=== PATIENT | female | born 1955 | race Two or more races ===

== ENCOUNTER 2024-07-15 11:26 | Emergency (ER) | payer MEDICAID, SELFPAY ==
[2024-07-15 11:28] VITALS: BMI 28.5
[2024-07-15 11:35] VITALS: BP 168/81; PULSE 76; RESP 16; TEMP 36.4; O2SAT 97
--- NOTE | 2024-07-15 11:47 | XR_ITS ---
Examination: Cervical spine 3 views Technique one AP lateral coned AP odontoid cervical spine 3 views Date and time: July 15, 2024 1306 hours INDICATIONS: Patient fell today with injury of the neck, neck pain. FINDINGS: Adequate alignment cervical vertebral bodies. No cervical fracture. Intact odontoid. Moderate degenerative disc disease C5-C6, C6-C7 IMPRESSION: Moderate degenerative disc disease C5-C6, C6-C7
--- NOTE | 2024-07-15 11:47 | XR_ITS ---
Examination: Lumbar spine 3 views Technique one AP lateral coned lateral lower lumbar spine 3 views Date and time: July 15, 2024 1301 hours INDICATIONS: Patient fell today with injury to the lower back, lower back pain. FINDINGS: No acute lumbar fracture Grade 1 anterolisthesis L5 on S1 Mild to moderate degenerative disc disease L5-S1 IMPRESSION: No lumbar fracture
--- NOTE | 2024-07-15 11:47 | XR_ITS ---
Examination: CT brain head without contrast. 2-D sagittal coronal reconstructions Date and time of exam:July 15, 2024 1245 hours Comparison June 01, 2006 INDICATIONS: Syncopal episode today, patient fell this morning with injury to the head, head pain CTDI: vol (mGy):44.6 DLP: (mGycm):918 Technique: Multiple CT axial sections of the brain have been obtained, 5 mm slice thickness. Contrast has not been administered. 2-D sagittal, coronal reconstructions have been obtained Low dose protocols were performed. One or more of the following dose reduction techniques were used; automated exposure control, adjustment of the mA and/or KV according to patient size, use of iterative reconstruction technique. Findings: No significant ventricular enlargement. Intra-axial or extra-axial hemorrhage density is not seen. No mass effect or midline shift Basal cisterns are not remarkable. Fourth ventricle is midline. Cranial vault intact. Impression: Negative for acute hemorrhage, mass effect or midline shift
--- NOTE | 2024-07-15 11:47 | XR_ITS ---
Examination: Thoracic spine 3 views TECHNIQUE: AP lateral coned lateral upper dorsal spine 3 views Date and time: July 15, 2024 1319 hours INDICATIONS: Patient fell today with injury to the mid back, mid back pain. FINDINGS: Adequate alignment thoracic vertebral bodies No thoracic fracture Mild diffuse thoracic disc narrowing IMPRESSION: No acute thoracic fracture
--- NOTE | 2024-07-15 11:48 | EDNOTE_ITS ---
<Statement entered by Cony Diallo MD - 07/26/24 01:04> As co-signing physician, I was present and available for consult prn. I concur with the plan and care as documented by the midlevel provider. ED Head Injury RME/HPI General Chief complaint: Head Injury Stated complaint: UPPER BACK AND HEAD PAIN S/P FALL AT 3AM, DENIES L Time Seen by Provider: 07/15/24 11:31 Arrival date/time: 07/15/24 11:26 RME / HPI RME / HPI Narrative: 68-year-old female patient came in for evaluation regarding fall. Patient was sleeping, patient fell off the bed according to her about 2 feet high, landed on the hard floor. Patient is complaining of headache, neck pain, upper back pain and lumbar pain described as dull ache, severity mild. Patient denies any nausea or vomiting incident happened about 3 AM this morning. Patient is ambulatory patient is not taking any blood thinner. Related Data Home Medications ?Medication ?Instructions ?Recorded ?Confirmed glipizide 10 mg tablet 10 mg PO QDAY 09/11/1709/11 losartan 25 mg tablet 25 mg PO QDAY 09/11/1709/11 metformin 500 mg tablet,extended 500 mg PO QDAY 09/11/17 release 24 hr omega 6-xsh-xoc-fish oil 1,000 mg 1,000 mg PO QDAY 09/11/17 (120 mg-180 mg) capsule (Fish Oil) ranitidine HCl 150 mg capsule 150 mg PO QPM 09/11/17 0 09/11/17 Allergies Allergy/AdvReac Type Severity Reaction Status Date / Time morphine Allergy Unknown sob Verified 07/15/24 11:30 Review of Systems Review of Systems Narrative Review of Systems: Review of system reviewed and within normal limits except mentioned in HPI ED Exam Narrative Physical exam: VITAL SIGNS: Reviewed. GENERAL APPEARANCE: Alert and interactive, follows commands, no acute distress, HEAD AND FACE: Occipital tenderness, no swelling no hematoma ENT: PERRL, pink conjunctivitis, eyelid no trauma, Mucous membrane moist. NECK: Supple, posterior neck tenderness, no nuchal rigidity. CHEST: No tenderness, no crepitus, no paradoxical movement, no retractions. LUNGS: Clear, well ventilated, symmetric, no rales, no wheezing, no ronchi, no stridor, good breath sounds bilaterally. HEART: Regular rate, regular rhythm, no murmur, no gallops. ABDOMEN: Soft, positive bowel sounds, nondistended, no guarding, nontender, no rebound, no masses, RECTAL: Deferred. GENITAL: Deferred. NEUROLOGICAL: Gross motor function intact sensory function intact, Appropriate for age. MUSCULOSKELETAL: low back low back tenderness, full range of motion. EXTREMITIES: Nontender, full range of motion. SKIN: Color pink, dry, no rash, no lacerations, no abrasions, no contusions. LYMPHATICS: Deferred. Course Quality Measures none Orders Category Date Time Status CT head/brain wo con Stat Exams 07/15/24 11:47 Completed XR cervical spine 2-3V Stat Exams 07/15/24 11:47 Completed XR lumbar spine 2-3V Stat Exams 07/15/24 11:47 Completed XR thoracic spine 2V Stat Exams 07/15/24 11:47 Completed Vital Signs Vital signs: Vital Signs Temperature 97.5 F 07/15/24 11:35 Pulse Rate 76 07/15/24 11:35 Respiratory Rate 16 07/15/24 11:35 Blood Pressure 168/81 H 07/15/24 11:35 Pulse Oximetry (%) 97 07/15/24 11:35 Oxygen Delivery Method Room Air 07/15/24 11:35 Head Injury MDM Narrative MDM Narrative:: 68-year-old female patient came in for evaluation regarding fall. Patient was sleeping, patient fell off the bed according to her about 2 feet high, landed on the hard floor. Patient is complaining of headache, neck pain, upper back pain and lumbar pain described as dull ache, severity mild. Patient denies any nausea or vomiting incident happened about 3 AM this morning. Patient is ambulatory patient is not taking any blood thinner. Patient CT scan of the head came back unremarkable. X-ray of the cervical spine thoracic spine and lumbar spine all came back normal results discussed with the patient and family. Patient appears nontoxic and hemodynamically stable .Decision to discharge the patient. The patient/family was given an opportunity to ask questions and understood their discharge instructions. Discharge instructions specifically included follow up provider and time frame, current and/or new medications and possible side effects, indications for sooner follow up or return to the emergency department, and the expected course of current diagnosis. Patient reports feeling better as well and giving evidence of significant clinical improvement, I believe patient is now a candidate for discharge. Patient data External records reviewed:: None Clinical information provided by:: patient and family Social determinants that could affect healthcare access:: none Patient has the following chronic illnesses:: Arthritis hypertension diabetes mellitus How is presenting disease/condition affected by chronic disease/condition?: exacerbated by Evaluation data The following diagnostics were reviewed and interpreted by me:: radiology exam(s) Lab and/or radiology exams considered but not ordered:: None Interpretation Summary: See results in MDM Medications / Prescriptions Medications or Prescriptions considered but not ordered:: None Medication administrations:: None Consultations Consultation(s) initiated? (list below): No Diagnosis Differential diagnosis head injury: other (Neck pain, back pain, status post fall) Most likely diagnosis given after review of the tests above:: Neck pain, back pain, fall Admission Indicated Admission indicated?: not indicated Admission Request Was there a request for admission?: No Disposition Plan Disposition Plan: Discharge Discharge Attestation Discharge Attestation: The patient and all family members were given an opportunity to ask questions and understood the discharge instructions. Discharge instructions specifically effects, indications for sooner follow up or return to the emergency department, and the expected course of current diagnosis. Patient condition: Stable Discharge Plan Plan Patient Disposition: HOME (Self Care) Discharge Disposition comment: Stable Prescriptions/Referrals Prescriptions/Med Rec: No Action glipizide 10 mg Tablet 10 mg PO QDAY losartan 25 mg Tablet 25 mg PO QDAY metformin 500 mg Tablet Extended Release 24 Hr 500 mg PO QDAY omega 3-tmj-ymz-fish oil [Fish Oil] 1,000 mg (120 mg-180 mg) Capsule 1,000 mg PO QDAY ranitidine HCl 150 mg Capsule 150 mg PO QPM Referrals: Tere Hensley MD [Primary Care Provider] - In 1 week Problem List Clinical Impression: Neck pain, Back pain, Fall Patient/Caregiver Discharge Instructions Discharge Activity: activity as tolerated Education Materials: Back Safety Bed Additional Instructions: Thank you for the opportunity for serving you today. You are stable for discharged . You are advised to: Follow-up with your PCP in 1 to 2 days Return to ED for worsening of symptoms Increase oral fluids Take [id number] Tylenol as needed for pain Print Language: Nepalese Stand Alone Forms: [employer] Award Info., Patient Portal Info Letter PA/MAPPING SUPERVISOR Supervising Physician AREN/MAPPING SUPERVISOR Supervising Physician: MD Gloria
== END 2024-07-15 15:22 | disposition home or self-care (01) ==
PROVIDERS: Emergency Provider Emergency Medicine; PCP Obstetrics & Gynecology
DX: S09.90XA Unspecified injury of head, initial encounter (principal); S19.9XXA Unspecified injury of neck, initial encounter; S39.92XA Unspecified injury of lower back, initial encounter; S29.9XXA Unspecified injury of thorax, initial encounter; W06.XXXA Fall from bed, initial encounter
CPT/HCPCS: 70450; 72040; 72070; 72100; 99283

== ENCOUNTER 2024-11-07 16:59 | Emergency (ER) | payer MEDICAID, SELFPAY ==
[2024-11-07 16:59] VITALS: BMI 27.3
[2024-11-07 17:13] VITALS: BP 193/64; PULSE 76; RESP 18; TEMP 36.5; O2SAT 100
--- NOTE | 2024-11-07 17:18 | XR_ITS ---
Examination: PA chest single view Technique: Upright PA chest single view Date and time: November 07, 2024, 1800 hrs. Indications: Fever today. Findings: Normal heart size Mild vascular congestion. No lobar pneumonia. No pulmonary edema Impression: No lobar pneumonia
--- NOTE | 2024-11-07 17:18 | XR_ITS ---
Examination: CT abdomen and pelvis without contrast. Coronal 3-D reconstructions. Sagittal 2-D reconstructions. Date and time of exam:November 07, 2024 1810 hrs. Indications: Generalized abdominal pain beginning 2 days ago CTDI: vol (mGy): 6.94 DLP: (mGycm): 330 Technique: Axial images of the abdomen have been obtained, 3 mm slice thickness Intravenous contrast material has not been administered. Low dose protocols were performed. One or more of the following dose reduction techniques were used; automated exposure control, adjustment of the mA and/or KV according to patient size, use of iterative reconstruction technique. Findings: No focal liver or splenic lesions No gallstones No pancreatic or adrenal mass. No renal or ureteral calculi, no hydronephrosis Aorta normal size Normal appendix Colonic diverticulosis, no diverticulitis Urinary bladder intact Absent uterus No pelvic mass Grade 1 anterolisthesis L5 on S1 Impression: No renal or ureteral calculi, no hydronephrosis Negative for pancreatitis Normal appendix Colonic diverticulosis, no diverticulitis
[2024-11-07 17:54] LABS: Basophils # (Auto) 0.0 Thou/mm3 (0.0-0.2); Basophils % (Auto) 0 % (0-2.5); Eosinophils # (Auto) 0.2 Thou/mm3 (0.0-0.5); Eosinophils % (Auto) 4 % (0-10); Hematocrit 38.4 % (36.0-46.0); Hemoglobin 12.9 g/dL (12.0-16.0); Immature Granulocytes Auto 0.02 Thou/mm3 (0.00-0.00); Lymphocytes # (Auto) 2.1 Thou/mm3 (1.0-4.8); Lymphocytes % (Auto) 40 % (10-50); Mean Corpuscular HGB Conc 33.6 g/dl (31.0-37.0); Mean Corpuscular Hemoglobin 28.9 pg (25.0-35.0); Mean Corpuscular Volume 86 fL (80-100); Monocytes # (Auto) 0.3 Thou/mm3 (0.0-0.8); Monocytes % (Auto) 6 % (0-12); Neutrophils # (Auto) 2.6 Thou/mm3 (1.8-7.7); Neutrophils % (Auto) 49 % (37-80); Nucleated Red Blood Cell # 0.00 Thou/mm3 (0.00-0.00); Nucleated Red Blood Cell % 0 /100 WBC (0); Platelet Count 148 Thou/mm3 (140-440); RDW Standard Deviation 39.5 fL (36.4-46.3); Red Blood Count 4.46 Miln/mm3 (4.00-5.20); White Blood Count 5.2 Thou/mm3 (3.6-11.0)
[2024-11-07 18:14] LABS: Alanine Aminotransferase 18 U/L (10-49); Albumin, Serum 4.7 gm/dL (3.4-4.8); Albumin/Globulin Ratio 1.7 (1.2-2.2); Alkaline Phosphatase 123 U/L (46-116); Amylase 103 U/L (30-118); Anion Gap 10 (7-16); Aspartate Amino Transferase 19 U/L (0-34); BUN/Creatinine Ratio 16 Ratio (12-20); Bilirubin,Total 0.5 mg/dL (0.3-1.2); Blood Urea Nitrogen 13 mg/dL (9-23); Calcium 10.1 mg/dL (8.3-10.6); Calcium (Corrected) 10.1 mg/dL (8.5-10.1); Carbon Dioxide 23.9 mMol/L (20.0-31.0); Chloride 109 mMol/L (98-107); Creatinine (Component) 0.8 mg/dL (0.6-1.3); Estimated Creatinine Clearance 54.4 mL/min (>60); Globulin 2.8 gm/dL (2.3-3.5); Glucose 139 mg/dL (74-106); Osmolality,Calculated 287 (275-295); Potassium 3.4 mMol/L (3.4-5.1); Sodium 143 mMol/L (136-145); Total Protein 7.5 gm/dL (5.7-8.2); eGFR > 60 See Note
[2024-11-07 18:19] LABS: Collection Type, Urine Clean Catch
[2024-11-07 18:25] LABS: Bilirubin,Urine Negative (Negative); Blood,Urine Negative (Negative); Clarity,Urine Clear (Clear/Hazy); Color,Urine Colorless (Lt Yel-Yel); Glucose, Urine Negative (Negative); Ketones,Urine Negative (Negative); Leukocyte Esterase,Urine Positive (Negative); Nitrite,Urine Negative (Negative); PH,Urine 7.0 (5.0-7.0); Protein,Urine Negative (Neg - Trace); RBC,Urine < 1 /hpf (0-3); Specific Gravity,Urine 1.006 (1.001-1.035); Squamous Epithelial Cell,Urine 2 /hpf (0-5); Urobilinogen,Urine Negative mg/dL (0.0-1.0); WBC,Urine 3 /hpf (0-5)
[2024-11-07] MEDS: ALBUTEROL/IPRATROPIUM (Duoneb) RT SOL 3 ML NEBU INH (18:48)
[2024-11-07 18:51] VITALS: PULSE 70; RESP 18; O2SAT 100
--- NOTE | 2024-11-07 19:16 | PD.EDSOB ---
ED SOB =RME/HPI General Chief Complaint: Shortness of Breath/Dyspnea Stated Complaint: SOB, CHEST PAIN X5D Time Seen by Provider: 11/07/24 17:09 Arrival date/time: 11/07/24 16:59 This is a case of 68-year-old female who has a history of hypertension and diabetes came in in the emergency room due to shortness of breath on and off for 5 days associated with chest pain no palpitation daughter states that the patient have history of COVID and recurrent bronchitis worsening of the symptoms now with abdominal pain denies any nausea vomiting constipation diarrhea or blood in stool thus patient decided to start consult in the emergency room Limitations: no limitations Related Data Home Medications ?Medication ?Instructions ?Recorded ?Confirmed glipizide 10 mg tablet 10 mg PO QDAY 09/11/17 09/11/17 losartan 25 mg tablet 25 mg PO QDAY 09/11/17 09/11/17 metformin 500 mg tablet,extended 500 mg PO QDAY 09/11/17 09/11/17 release 24 hr omega 9-gvj-iui-fish oil 1,000 mg 1,000 mg PO QDAY 09/11/17 09/11/17 (120 mg-180 mg) capsule (Fish Oil) ranitidine HCl 150 mg capsule 150 mg PO QPM 09/11/17 09/11/17 Previous Rx's ?Medication ?Instructions ?Recorded albuterol sulfate 90 mcg/actuation 2 puff inhalation Q6H PRN 11/07/24 aerosol inhaler (Ventolin HFA) shortness of breath or wheezing #8.5 grams amoxicillin 875 mg-potassium 1 tab PO BID #20 tabs 11/07/24 clavulanate 125 mg tablet dicyclomine 20 mg tablet 20 mg PO TID #10 tabs 11/07/24 ondansetron 4 mg disintegrating 4 mg PO Q8H PRN nausea and 11/07/24 tablet vomiting #10 tabs prednisone 20 mg tablet 20 mg PO QDAY 3 days #3 tabs 11/07/24 Allergies Allergy/AdvReac Type Severity Reaction Status Date / Time morphine Allergy Unknown sob Verified 11/07/24 17:02 Review of Systems Review of Systems Systems Reviewed: All systems reviewed, normal except as documented Constitutional Constitutional: Reports system reviewed and no additional complaints, except as documented and Reports as per HPI Cardiovascular Cardiovascular: Reports system reviewed and no additional complaints, except as documented and Reports as per HPI Respiratory Respiratory: Reports system reviewed and no additional complaints, except as documented and Reports as per HPI Gastrointestinal Gastrointestinal: Reports system reviewed and no additional complaints, except as documented and Reports as per HPI Musculoskeletal Musculoskeletal: Reports system reviewed and no additional complaints, except as documented and Reports as per HPI Neurologic Neurologic: Reports system reviewed and no additional complaints, except as documented and Reports as per HPI Past Medical History Past Medical History NEUROLOGIC: Negative Seizures OTHER HISTORY: Negative Blood Transfusions, Blood Transfusion Reaction or Anesthesia Reactions Social History SMOKING STATUS: Never smoker ED Exam General Limitations: Present no limitations General appearance: Present alert, in no apparent distress and other (Patient is awake alert oriented not in distress nontoxic looking well-hydrated well-nourished) Head Head exam: Present atraumatic, normocephalic and normal inspection Eye Eye exam: Present normal appearance, PERRL and EOMI ENT ENT exam: Present normal exam, normal oropharynx, mucous membranes moist and other Neck Neck exam: Present normal inspection, full ROM, trachea midline and other (Negative for meningeal sign); Absent tenderness, meningismus or lymphadenopathy Chest Chest inspection: Present normal inspection and symmetric chest wall rise; Absent tenderness Respiratory Respiratory exam: Present normal lung sounds bilaterally and wheezes (Wheezing right lower lung field mild no crackles no rales no retraction); Absent respiratory distress, stridor, accessory muscle use or prolonged expiratory phase Cardiovascular Cardiovascular exam: Present regular rate, normal rhythm, normal heart sounds and other (No edema); Absent bradycardia, tachycardia, irregular rhythm, systolic murmur or diastolic murmur Abdominal Exam Abdominal exam: Present soft, normal bowel sounds and other (No CVA tenderness); Absent distention, tenderness, guarding, rebound, rigidity, diminished bowel sounds, hyperactive bowel sounds, hypoactive bowel sounds, organomegaly, trauma, psoas sign, obturator sign, heel tap sign, Kim's sign, Rovsing's sign or tenderness at McBurney's Point Extremities Exam Extremities exam: Present normal inspection and full ROM Back Exam Back exam: Present normal inspection and full ROM Neurological Exam Neurological exam: Present alert, oriented X3, CN II-XII intact, normal gait and reflexes normal; Absent motor sensory deficit Psychiatric Psychiatric exam: Present normal affect and normal mood Skin Skin exam: Present warm, dry, intact and normal color Course Quality Measures none Orders Category Date Time Status Bedside COVID-19 Antigen Test NOW Care 11/07/24 17:23 Active Bedside Influenza A&B Antigen Test NOW Care 11/07/24 17:[address] abdomen pelvis wo con Stat Exams 11/07/24 17:18 Completed XR chest 1V portable Stat Exams 11/07/24 17:18 Completed Amylase Stat Lab 11/07/24 17:37 Completed CBC Stat Lab 11/07/24 17:37 Completed Comprehensive Metabolic Panel Stat Lab 11/07/24 17:37 Completed Troponin I Stat Lab 11/07/24 19:26 Ordered Urinalysis Stat Lab 11/07/24 17:36 Completed Albuterol/Ipratr Rt Jerrica [Duoneb Rt Jerrica] Med 11/07/24 17:25 Discontinued 3 ml INH X1 ONE Vital Signs Vital signs: Vital Signs Temperature 97.7 F 11/07/24 17:13 Pulse Rate 76 11/07/24 17:13 Respiratory Rate 18 11/07/24 17:13 Blood Pressure 193/64 H 11/07/24 17:13 Pulse Oximetry (%) 100 11/07/24 17:13 Oxygen Delivery Method Room Air 11/07/24 17:13 Patient blood pressure was 93/64 after giving breathing treatment patient condition markedly improved and resolved BP was rechecked and noted to be 135/40 afebrile not tachycardic not tachypneic oxygen saturation is 100% on room air Shortness of Breath / Dyspnea MDM Narrative MDM Narrative:: This is a case of 68-year-old female who has a history of hypertension and diabetes came in in the emergency room due to shortness of breath on and off for 5 days associated with chest pain no palpitation daughter states that the patient have history of COVID and recurrent bronchitis worsening of the symptoms now with abdominal pain denies any nausea vomiting constipation diarrhea or blood in stool thus patient decided to start consult in the emergency room physical examination patient is awake alert oriented not in distress nontoxic looking well-hydrated well-nourished negative for meningeal sign vital signs stable BP stable nontachycardic nontachypneic nonhypoxic and afebrile abdominal exam noted no tenderness no guarding no rebound no rigidity negative psoas negative straight and negative Rovsing's negative Bluebell's # negative CVA tenderness lung sounds noted wheezing right lower lung field no crackles no rales no retraction no stridor heart normal rate regular rhythm no murmur no edema blood test showed no leukocytosis no anemia kidney and liver function is normal no electrolyte imbalance urinalysis is normal EKG is normal troponin is negative patient CT scan of the abdomen pelvis were unremarkable only diverticulosis patient chest x-ray is normal no pneumonia after giving breathing treatment patient condition markedly improved she was prescribed with Augmentin for diverticulosis and bronchitis and she will finish the course of antibiotic she was also given Ventolin inhaler and prednisone for 3 days and dicyclomine for abdominal pain and Zofran for nausea vomiting patient is notified for any worsening symptoms or any emergent concerns she will return to the emergency room immediately or call 911 Patient was discharged with comfortable condition walking with stable gait. Patient verbalized no further complains explained diagnosis and answered patient question. Patient is comfortable with the proposed management plan including the need to follow up with his/her primary care physician and any specialist if applicable Discussed patient for any urgent condition or worsening sx, He/She needed to go to emergency room immediately or call 911. Patient acknowledge the responsibility to follow up as instructed and to monitor her/his symptoms. For any persistence of the symptoms for more than 3-5 days return precaution advised. Discussed the result of the test and was given printed discharge instruction Patient data External records reviewed:: [facility] previous records Clinical information provided by:: patient Social determinants that could affect healthcare access:: none Patient has the following chronic illnesses:: None How is presenting disease/condition affected by chronic disease/condition?: no chronic disease Evaluation data The following diagnostics were reviewed and interpreted by me:: lab results, radiology exam(s) and EKG tracing(s) Lab and/or radiology exams considered but not ordered:: Reviewed Interpretation Summary: Reviewed Medications / Prescriptions Medications or Prescriptions considered but not ordered:: Given Medication administrations:: Medication Administration History Discontinued Medications Albuterol/Ipratropium (Albuterol/Ipratropium (Duoneb) Rt Jerrica 3 Ml Nebu) 3 ml INH X1 ONE Stop: 11/07/24 17:26 Last Admin: 11/07/24 18:48 Dose: 3 ml Documented By: NE Given Consultations Consultation(s) initiated? (list below): No Diagnosis Shortness of Breath Differential Diagnosis: acute exacerbation of chronic obstructive airways disease, congestive heart failure, community acquired pneumonia and asthma with exacerbation Most likely diagnosis given after review of the tests above:: Acute bronchitis Admission Indicated Admission indicated?: not indicated Explain why admission is indicated or not indicated:: Not indicated Admission Request Was there a request for admission?: No Disposition Plan Disposition Plan: Discharge Discharge Attestation Discharge Attestation: The patient and all family members were given an opportunity to ask questions and understood the discharge instructions. Discharge instructions specifically effects, indications for sooner follow up or return to the emergency department, and the expected course of current diagnosis. Patient condition: Stable Discharge Plan Plan Patient Disposition: HOME (Self Care) Patient condition on transfer: Stable Prescriptions/Referrals Prescriptions/Med Rec: New amoxicillin-pot clavulanate 875-125 mg tablet 1 tab PO BID Qty: 20 0RF prednisone 20 mg tablet 20 mg PO QDAY 3 Days Qty: 3 0RF dicyclomine 20 mg tablet 20 mg PO TID Qty: 10 0RF albuterol sulfate [Ventolin HFA] 90 mcg/actuation HFA aerosol inhaler 2 puff inhalation Q6H PRN (Reason: shortness of breath or wheezing) Qty: 8.5 0RF ondansetron 4 mg tablet,disintegrating 4 mg PO Q8H PRN (Reason: nausea and vomiting) Qty: 10 0RF No Action glipizide 10 mg Tablet 10 mg PO QDAY losartan 25 mg Tablet 25 mg PO QDAY metformin 500 mg Tablet Extended Release 24 Hr 500 mg PO QDAY omega 6-bqi-shz-fish oil [Fish Oil] 1,000 mg (120 mg-180 mg) Capsule 1,000 mg PO QDAY ranitidine HCl 150 mg Capsule 150 mg PO QPM Referrals: Tere Hensley MD [Primary Care Provider] - In 1 week Problem List Clinical Impression: Chest pain of unknown etiology, Abdominal pain, Diverticulosis, Acute bronchitis Patient/Caregiver Discharge Instructions Education Materials: Abdominal Pain, Acute Bronchitis, ED Chest Pain, Uncertain Cause, ED Diverticulosis Additional Instructions: Follow-up with your primary care physician in 2 days for reevaluation and to be referred to director regulatory affairs for further evaluation and treatment of chest pain per echocardiogram stress test and Holter monitor he also need to see a club steward for further evaluation and treatment of your diverticulosis and melon packer for recurrent bronchitis worsening symptoms or any emergent concern call 911 or go to the nearest emergency room take your medication as directed finish the course of antibiotic keep hydrated Pedialyte Gatorade for episodes of vomiting and or diarrhea Print Language: Indonesian Stand Alone Forms: [employer] Award Info., Patient Portal Info Letter PA/DECK HAND Supervising Physician PA/DECK HAND Supervising Physician: Dr. Chapman
[2024-11-07 20:13] LABS: Troponin I < 0.002 ng/mL (0.0-0.045)
== END 2024-11-07 22:22 | disposition home or self-care (01) ==
PROVIDERS: Nurse Practitioner Family; Emergency Provider Family Medicine; PCP Obstetrics & Gynecology
DX: J20.9 Acute bronchitis, unspecified (principal); K57.30 Diverticulosis of large intestine without perforation or abscess without bleeding; I10 Essential (primary) hypertension; E11.9 Type 2 diabetes mellitus without complications; Z86.16 Personal history of COVID-19; Z88.5 Allergy status to narcotic agent
CPT/HCPCS: 36415; 71045; 74176; 80053; 81001; 82150; 84484; 85025; 94640; 99284; A9270